=== PATIENT | female | born 1955 | race Two or more races ===

== ENCOUNTER 2019-12-18 13:05 | Outpatient (CLI) | payer MEDICAID ==
--- NOTE | 2019-12-18 16:15 | Consultation ---
DATE OF CONSULTATION: 12/18/2019 CONSULTING PHYSICIAN: Sean Munoz MD CHIEF COMPLAINT: Referral for screening colonoscopy. PAST MEDICAL HISTORY: None. PAST SURGICAL HISTORY: Cataract surgery. MEDICATIONS: Please see medication reconciliation list. FAMILY HISTORY: No family history of GI malignancies. SOCIAL HISTORY: The patient denies any tobacco, alcohol, or IV drug use. ALLERGIES: No known drug allergies. REVIEW OF SYSTEMS: A 10-point review of systems was performed and was negative. PHYSICAL EXAMINATION: VITAL SIGNS: Temperature 97.7, pulse is 72, respirations 20, blood pressure is 132/76. HEENT: Normocephalic and atraumatic. Sclerae anicteric. NECK: Supple. No evidence of obvious lymphadenopathy. CARDIOVASCULAR: Regular rhythm. Plus S1, S2. LUNGS: Clear to auscultation bilaterally. ABDOMEN: Positive bowel sounds. Soft and nontender. No rebound. No guarding. No peritoneal sign. EXTREMITIES: No cyanosis. No clubbing. No edema. ASSESSMENT AND PLAN: This is a 64-year-old female who was referred for screening colonoscopy. The patient was informed of risks and benefits of procedure. The prep was explained to her. The patient will be scheduled when the authorization is obtained. Sean Munoz M.D. DR: Quinten JOB#: [id number] CC:
== END 2019-12-18 15:05 | disposition home or self-care (01) ==
LOC: PAN 13:05
DX: Z00.00 Encounter for general adult medical examination without abnormal findings (principal)
CPT/HCPCS: G0463

== ENCOUNTER 2020-04-02 13:42 | Outpatient (CLI) | payer MEDICAID | END 2020-04-02 15:42 | disposition home or self-care (01) | LOC: PAN 13:42 | DX: R10.9 Unspecified abdominal pain (principal) | CPT/HCPCS: 99212 ==